=== PATIENT | male | born 1970 | race Caucasian/White ===

== ENCOUNTER 2021-12-04 07:48 | Outpatient (CLI) | payer OTHER, SELFPAY ==
[2021-12-04 08:14] LABS: Anion Gap 6 mmol/L (8-16); Blood Urea Nitrogen 13 mg/dL (7-18); Calcium 8.9 mg/dL (8.5-10.1); Carbon Dioxide 28 mmol/L (21-32); Chloride 104 mmol/L (98-108); Estimated Glomerular Filt Rate > 60; Glucose 143 mg/dL (70-99); Osmolality Calculated 288 mOsm/kg (285-295); Potassium 3.9 mmol/L (3.5-5.1); Sodium 138 mmol/L (136-145)
--- NOTE | 2021-12-04 08:30 | ECG_ITS ---
Measurements Intervals [place] Rate: 63 P: 54 LA: 147 QRS: 43 QRSD: 93 T: 59 QT: 387 QTc: 397 Interpretive Statements SINUS RHYTHM NORMAL ECG Electronically Signed On 12-05-2021 9:55:14 CDT by Tomas Barragan D.O.
== END 2021-12-04 07:49 | disposition home or self-care (01) ==
PROVIDERS: PCP Physician Assistant; Visit Provider Orthopaedic Surgery Hand Surgery
DX: M25.531 Pain in right wrist (principal)
CPT/HCPCS: 36415; 80048; 93005

== ENCOUNTER 2022-03-19 00:47 | Day surgery (SDC) | payer OTHER, SELFPAY ==
--- NOTE | 2022-03-06 12:06 | PC.NURSE ---
Message left on voicemail regarding upcoming procedure. Instructed to return call for information etc.
[2022-03-07 14:06] VITALS: BMI 36.9
--- NOTE | 2022-03-19 06:43 | PM.HPGS ---
History of Present Illness History of Present Illness Consent: Risks, benefits, and alternatives have been discussed and questions answered. Patient agrees to proceed with procedure. Chief complaint: positive cologuard Narrative: Jonnie Lopez is a 52 year old male Referred for colon cancer screening. He had performed a Cologuard test which was positive Review of Systems Review of Systems: All systems reviewed & are unremarkable except as noted in HPI and below PMFSH Social History Social History Smoking status: Former smoker Tobacco type: cigarettes Alcohol intake: current Drinks per week: 8 Substance use type: does not use Living arrangements: with family Spiritual care concerns: No Meds Home Medications and Allergies Home Medications Medication Instructions Recorded Confirmed Type losartan 100 1 tablet PO DAILY 03/07/22 03/19/22 History mg-hydrochlorothiazide 12.5 mg tablet rosuvastatin 5 mg tablet 5 mg PO DAILY 03/07/22 03/19/22 History Allergies Allergy/AdvReac Type Severity Reaction Status Date / Time lisinopril AdvReac Cough Verified 03/19/22 11:43 Exam Const: General: alert Orientation/consciousness: patient oriented x3 Resp: Auscultation: clear to auscultation bilaterally Cardio: Rhythm: regular rhythm GI: GI Palp: Yes Soft to palpation and No Tenderness to palpation present (GI) Neuro: General: patient oriented x3 Assessment and Plan Assessment and plan (1) Colon cancer screening: Code(s): Z12.11 - Encounter for screening for malignant neoplasm of colon Status: Acute Assessment and Plan: Colonoscopy with possible biopsy or polypectomy or cautery or injection of substances.
[2022-03-19 11:45] VITALS: BP 122/78; PULSE 85; RESP 18; TEMP 36.2; O2SAT 97
[2022-03-19] MEDS: LACTATED RINGERS 1,000 ML 150 ML IV CONT (11:47)
--- NOTE | 2022-03-19 12:27 | P.PNAN_ITS ---
Anes - Initial Pre Proc Eval Procedure: Operation Date: 03/19/22 13:00 Proposed Procedures p Colonoscopy - Dmitri Funes MD Date/Time: 03/19/22 12:27 Surgeon: Dmitri Funes MD Pre Op Diagnosis: positive cologuard Patient Data Age: 52 Gender: M Height: 1.75 m Weight: 108.7 kg Last Vital Signs Temp 97.2 F L 03/19/22 11:45 Pulse 85 03/19/22 11:45 Resp 18 03/19/22 11:45 BP 122/78 03/19/22 11:45 Pulse Ox 97 03/19/22 11:45 O2 Del Method Room Air 03/19/22 11:45 Allergies Allergy/AdvReac Type Severity Reaction Status Date / Time lisinopril AdvReac Cough Verified 03/19/22 11:43 Home Medications Medication Instructions Recorded Confirmed Type losartan 100 1 tablet PO DAILY 03/07/22 03/19/22 History mg-hydrochlorothiazide 12.5 mg tablet rosuvastatin 5 mg tablet 5 mg PO DAILY 03/07/22 03/19/22 History Patient hx anesthesia problems: none Family hx anesthesia problems: none Results Review: All pre-operative results and documents have been reviewed as part of the pre- operative evaluation. [facility] Social History Social History Smoking status: Former smoker Tobacco type: cigarettes Alcohol intake: current Drinks per week: 8 Substance use type: does not use Living arrangements: with family Spiritual care concerns: No Anes - Eval Final PreProcedure Day of Procedure 03/19/22 12:27 Patient weight: obese Heart: regular rate and rhythm Lungs: clear to auscultation Airway: Mallampati scale class II Neurological: alert and oriented Last oral intake: >/= 8 hours ASA classification: II Emergent: no Anesthetic plan: proceed Anesthesia type and monitoring: general GIVS and standard monitoring Results Review: All pre-operative results and documents have been reviewed as part of the pre- operative evaluation. Informed Consent: The patient's anesthetic plan and its attendant risks and benefits were discussed with the patient/family/POA. Questions were solicited and answers provided to the satisfaction of the patient/family/POA.
[2022-03-19 13:17] VITALS: BP 108/50; PULSE 75; RESP 17; O2SAT 97
[2022-03-19 13:27] VITALS: BP 99/71; PULSE 68; RESP 20; O2SAT 97
[2022-03-19 13:37] VITALS: BP 112/67; PULSE 67; RESP 20; O2SAT 96
== END 2022-03-19 13:47 | disposition home or self-care (01) ==
PROVIDERS: PCP Physician Assistant; Visit Provider Internal Medicine Gastroenterology
PROC: 0DJD8ZZ Inspection of Lower Intestinal Tract, Via Natural or Artificial Opening Endoscopic (ICD-10-PCS; CPT 45378; principal; 2022-03-19 13:00)
DX: Z12.11 Encounter for screening for malignant neoplasm of colon (principal); D12.4 Benign neoplasm of descending colon; K63.5 Polyp of colon; K57.30 Diverticulosis of large intestine without perforation or abscess without bleeding; K64.8 Other hemorrhoids; R19.5 Other fecal abnormalities; Z87.891 Personal history of nicotine dependence; E66.9 Obesity, unspecified; Z68.35 Body mass index [BMI] 35.0-35.9, adult
CPT/HCPCS: 45385; 45380; 88305; J2704; J7120